=== PATIENT | female | born 1960 | race Caucasian/White ===

== ENCOUNTER → 2021-09-18 | Outpatient (CLI) | payer SELFPAY ==
--- NOTE | 2021-09-15 | LES_PTH ---
PATIENT: GAMALIEL WAHL [id number] AGE/SX: 60/F ROOM: RE09/18/[address]: ASHLIE Pelayo : 1960 BED: DIS: 09/18/2021 SPEC #: [id number] RECD: 09/15/21 23:57 STATUS: FERNANDA LY #: [id number] SAVANNAH: 09/15/21 00:[address]: Melanie Gaston NP DEPT: SURGICAL PATHOLOGY RECD BY: Liudmila Bauer Tissues: Skin of hand and finger, NOS Procedures: Surgery Specimen Level IV HEADER OPERATION: Shave biopsy PRE-OP DIAGNOSIS: Lesion left hand TISSUE SUBMITTED: Left dorsal hand shave biopsy MICROSCOPIC DIAGNOSIS Skin lesion of left hand, shave biopsy: Multiple fragments of skin with verrucoid change. See comment. AM:colby 09/19/2021 COMMENT The specimen contains superficial detached fragments of verrucoid skin. Complete excision is recommended for definitive classification, if clinically indicated. Clinical correlation is necessary. MICROSCOPIC DESCRIPTION Slides are reviewed. GROSS DESCRIPTION Received in fixative is one container labeled with the patient's name and designated left dorsal hand. The specimen consists of two pieces of shave biopsy of orellana-white skin each measuring 0.5 x 0.2 x 0.1 cm. The entire specimen is submitted in one cassette. / SJ:colby 09/18/2021 TC:5 CPT: 79533
== END | disposition home or self-care (01) ==
PROVIDERS: Referring Provider Nurse Practitioner; Visit Provider Nurse Practitioner
DX: L98.9 Disorder of the skin and subcutaneous tissue, unspecified (principal)
CPT/HCPCS: 88305